=== PATIENT | male | born 1965 | race Caucasian/White ===

== ENCOUNTER 2016-12-24 07:00 | Day surgery (SDC) | payer OTHER ==
[~2016-12-24] VITALS: Ht 175.3 cm; Wt 78.8 kg
[~2016-12-24 07:00] MED LIST: 0.9% Sodium Chloride 1,000 ML IV SCH; LEVO50TA6 PO; MULT1CAP33 PO; Sodium Chloride LOK Flush 10 mL Syringe IV PRN; TEST200K IM; fentaNYL-PF 50 mCg/mL 2 mL Inj IVPUSH PRN
[2016-12-24 07:27] VITALS: BP 138/86; PULSE 81; RESP 16; O2SAT 100
--- NOTE | 2016-12-24 08:44 | PCM.ENDEGD ---
EGD Date of Service: Dec 24, 2016 Physician Nitin Browne MD Indication for Procedure Weight loss Pre Procedure Diagnosis: Weight loss Post Procedure Dx & Findings: Gastritis gastric erosion Procedure Esophagogastroduodenoscopy PROCEDURE IN DETAIL: After proper sedation, Olympus video endoscope was inserted into patient's mouth and esophagus was successfully intubated. Scope introduced esophagus. Esophagus showed normal shiny whitish mucosa consistent with squamous cell component. Z line was intact at 40 cm from the incisors. Scope further advanced to the stomach. The antrum and body show some irritation and small millimeter or 2 mm erosions. These are biopsied.. Cardia fundus body antrum pylorus were all visualized. Retroflexion was done. Stomach was easily inflated and deflatable using air. Scope further advanced to the distal duodenum. Duodenum revealed normal villous structures with normal appearing folds without any mass ulcer erosion. 6 biopsies obtained for rule out celiac disease. Impression Gastritis gastric erosion Recommendation Await biopsy Avoid NSAIDs Presedation Assessment Risks and Benefits Informed consent was obtained from the patient after all risks and benefits including but not limited to drug reaction, infection, pain, bleeding, perforation, as well as alternatives were discussed. Patient monitoring Continuous pulse oximetry, cardiac monitoring, blood pressure monitoring, IV access, and oxygen at 2L per nasal cannula. Periprocedural Fentanyl: Fentanyl 125mcg Incrementally Midazolam: Midazolam 8mg Incrementally Complications There were no periprocedural complications identified. Post Procedure Plan Post Procedure Recommendations 1. Restrict activities today. 2. Resume normal activities in the morning. 3. Resume medications. 4. GERD behavioral modification: - Avoid fatty, acidic, spicy, large meals - Do not lie down after meals - Do not eat or drink anything for at least 2 1/2 hours before going to bed at night - Discontinue tobacco and alcohol - Decrease or avoid caffeine - Avoid chocolate and mints - Decrease weight - Avoid aspirin and non steroidal anti-inflammatory agents (NSAID) such as Aleve, Advil, Mobic, Naproxen, Ibuprofen, etc 5. Add proton pump inhibitor. Take 30 minutes before 1st meal of the day. 6. Patient informed of normal post procedure side effects as bloating, drowsiness, blood streaking in the stool 7. If gastric biopsy reveal H.pylori, continue with appropriate treatment 8. If small bowel biopsy reveals celiac, continue with appropriate treatment 9. Please don't hesitate to call me with any questions Nitin Browne MD Dec 24, 2016 08:44
[2016-12-24 08:46] VITALS: BP 97/62; PULSE 65; RESP 10; O2SAT 100
--- NOTE | 2016-12-24 08:47 | PCM.ENDCOL ---
Colonoscopy Date of Service: Dec 24, 2016 Physician Nitin Browne MD Pre Procedure Diagnosis: Blood in the stools Post Procedure Dx & Findings: Hemorrhoid diverticuli and distal rectal colitis Procedure Colonoscopy PROCEDURE IN DETAIL: Prep adequate Withdrawal time 11 minutes After unremarkable rectal examination the Olympus video colonoscope was inserted patient's anal canal and was advanced to cecum. Landmarks were identified including the ileocecal valve and appendiceal orifice. Scope further events to terminal ileum. Advanced 10 cm. Terminal ileum showed a normal villous structures without any ulcerative mass erosions. Scope was withdrawn systematically. Visualized colonic mucosa showed healthy shiny mucosa with normal healthy-appearing vasculature. Diverticulosis noted few in number of small size in the sigmoid colon. In the distal rectum saw some irritation and edema. Biopsies obtained. In the rectum retroflexion was done which showed hemorrhoids. Anal canal was inspected carefully on the way out and hemorrhoids noted. Impression Diverticulosis Distal rectal irritation status post biopsied Hemorrhoids Recommendation Repeat colonoscopy 10 years Diverticula diet Surgery consult for hemorrhoids. Presedation Assessment Risks and Benefits Informed consent was obtained from the patient after all risks and benefits including but not limited to drug reaction, infection, pain, bleeding, perforation, as well as alternatives were discussed. Patient monitoring Continuous pulse oximetry, cardiac monitoring, blood pressure monitoring, IV access, and oxygen at 2L per nasal cannula. Complications There were no periprocedural complications identified. Post Procedure Plan Post Procedure Recommendations 1. Restrict activities today. 2. Resume normal activities in the morning. 3. Resume medications. 4. Patient informed of normal post procedure side effects as bloating, drowsiness, blood streaking in the stool. 5. average risk CRCS. If colon polyps come back as: -Hyperplastic- can repeat colonoscopy in 10 years -Tubular adenoma- repeat colonoscopy in 5 years -Tubulovillous/villous adenoma- repeat colonoscopy in 3 years -If any dysplasia- return to clinic as soon as possible 6. Please don't hesitate to call me with any questions. Nitin Browne MD Dec 24, 2016 08:47
[2016-12-24 08:54] VITALS: BP 87/59; PULSE 70; RESP 16; O2SAT 100
[2016-12-24 09:01] VITALS: BP 104/74; PULSE 70; RESP 14; O2SAT 100
--- NOTE | 2016-12-25 16:40 | PATH ---
SURGICAL PATHOLOGY Attending Physician:Nitin Browne M.D. CASE STATUS: Signed Out PATIENT NAME: RAFIQ GONZALEZ PID: [id number] : 1965 DATE COLLECTED:12/24/2016 16:54 SPECIMEN: 1: Small Intestine/Bowel, Biopsy 2: Stomach, Antrum, Biopsy 3: Rectum, Biopsy CLINICAL HISTORY: 1). SMALL BOWEL BIOPSY 2). ANTRUM BIOPSY 3). RECTAL BIOPSY FINAL DIAGNOSIS: 1. Small Bowel, Biopsy: Small bowel mucosa with no diagnostic abnormality. Negative for active inflammation, features of sprue, dysplasia or malignancy. 2. Antrum, Biopsy: Gastric antral mucosa with reactive epithelial changes consistent with adjacent erosion. Helicobacter organisms not identified. Negative for intestinal metaplasia, dysplasia, and malignancy. 3. Rectum Biopsy: Colonic mucosa with hyperplastic features. ICD10: R63.4 GROSS DESCRIPTION: The specimen is received in three formalin filled containers labeled with the patient's name. 1). Received in formalin and labeled "small bowel" and consists of 4 fragments of tissue which aggregate to 0.2 x 0.2 x 0.2 CM. The specimen is entirely submitted in cassette 1A. 2). The specimen is labeled "antrum" and consists of 2 portions of tissue which aggregate to 0.2 x 0.2 x 0.2 CM. The specimen is apparently submitted in cassette 2A. 3). The specimen is labeled "rectal" and consists of 2 portions of tissue which aggregate to 0.2 x 0.2 x 0.2 CM. The specimen is entirely submitted in cassette 3A. 12/24/2016DC ICD-9 CODES: CPT CODES: 1: 96375 2: 36507 3: 84259 Electronically Signed Out Garcia Almaraz MD, Ph.D. [facility] Pathology [facility] [address] [place] [address], [place] [address] Technical component performed at [facility], [facility] [address], [place], [address]
== END 2016-12-24 23:59 | disposition home or self-care (01) ==
LOC: END 07:00
PROVIDERS: ATTEND Internal Medicine
DX: K92.1 Melena (principal); K57.30 Diverticulosis of large intestine without perforation or abscess without bleeding; K64.8 Other hemorrhoids; K29.70 Gastritis, unspecified, without bleeding; R63.4 Abnormal weight loss; E03.9 Hypothyroidism, unspecified
CPT/HCPCS: 43239; 45380; 99153; G0500; J2250; J3010; J7030